=== PATIENT | male | born 2000 | race Caucasian/White ===

== ENCOUNTER 2025-05-03 13:12 | Emergency (ER) | payer OTHER ==
[~2025-05-03] VITALS: Ht 175.3 cm; Wt 77.3 kg
[2025-05-03 13:19] VITALS: BP 135/79; PULSE 72; RESP 18; TEMP 98.5; O2SAT 99
[2025-05-03] MEDS: FLUCONAZOLE 150 MG TABLET PO ONE (14:55)
[2025-05-03] MEDS: CLOTRIMAZOLE 1% 15 GM CREAM TP ONE (14:56)
== END 2025-05-03 15:03 | disposition home or self-care (01) ==
LOC: EMS 13:15
DX: N48.1 Balanitis (principal)
CPT/HCPCS: 99283